=== PATIENT | male | born 1945 | race Caucasian/White ===

== ENCOUNTER 2021-12-28 10:51 | Observation (INO) ==
[2021-12-28] MEDS ORDERED: Ondansetron 4 MG/2 ML VIAL IVP ONE (11:11)
[2021-12-28 11:49] LABS: Basophils # 0.1 K/mcL (0.0-0.2); Eosinophils # 0.4 K/mcL (0.0-0.6); Eosinophils % 4.3 %; Hematocrit 38.9 % (37.5-50.1); Hemoglobin 12.7 g/dL (12.9-16.9); Immature Granulocytes % 1.2 % (0-4); Lymphocytes # 1.4 K/mcL (0.6-4.6); Lymphocytes % 16.5 %; Mean Corpuscular HGB Conc 32.6 g/dL (31.6-35.5); Mean Corpuscular Hemoglobin 30.2 pg (28.0-33.3); Mean Corpuscular Volume 92.4 fL (83.0-100.0); Mean Platelet Volume 10.5 fL (9.4-12.4); Monocytes # 0.5 K/mcL (0.0-1.3); Monocytes % 6.4 %; Neutrophils # 5.8 K/mcL (1.6-8.9); Platelet Count 305 K/mcL (140-400); Red Blood Count 4.21 M/mcL (4.19-5.50); Segmented Neutrophils % 70.6 %; White Blood Count 8.2 K/mcL (4.3-11.1)
[2021-12-28 12:12] LABS: Troponin I 0.04 ng/mL (< 0.04)
[2021-12-28 12:34] LABS: Albumin 4.3 g/dL (3.5-5.7); Albumin/Globulin Ratio 1.5 (1.1-2.2); Bilirubin,Direct 0.1 mg/dL (0.0-0.2); Bilirubin,Indirect 0.7 mg/dL (0.0-1.0); Bilirubin,Total 0.8 mg/dL (0.3-1.0); Calcium 9.6 mg/dL (8.6-10.3); Globulin 2.8 g/dL (2.4-3.5); Potassium 4.3 mEq/L (3.5-5.1); Total Protein 7.1 g/dL (6.4-8.9)
[2021-12-28] MEDS ORDERED: 0.9 % Sodium Chloride 1,000 ML IVC ONE (12:46)
[2021-12-28] MEDS ORDERED: Acetaminophen 325 MG TABLET PO PRN (12:58)
[2021-12-28] MEDS ORDERED: Ondansetron ODT 4 MG TAB.RAPDIS SL PRN (12:58)
[2021-12-28] MEDS ORDERED: Melatonin 3 MG TABLET PO PRN (12:58)
[2021-12-28] MEDS ORDERED: Naloxone 0.4 MG/ML INJ IVP PRN (12:58)
[2021-12-28 13:35] LABS: Bilirubin,Urine Negative (Negative); Blood,Urine Negative (Negative); Clarity,Urine Clear (Clear); Color,Urine Colorless (Yellow); Glucose,Urine (UA) 30 mg/dL (Normal); Hyaline Casts,Urine Few per lpf (None Seen); Ketones,Urine Negative (Negative); Leukocyte Esterase,Urine Negative (Negative); Mucus,Urine Few per lpf (None-Few); Nitrite,Urine Negative (Negative); Protein,Urine 100 mg/dL (Neg-Trace); RBC,Urine 0-3 per hpf (0-3); Specific Gravity,Urine 1.014 (1.010-1.025); Urobilinogen,Urine Normal (Normal); WBC,Urine 0-3 per hpf (0-3)
[2021-12-28 14:52] LABS: Influenza A PCR Negative (Negative); Influenza B PCR Negative (Negative); Resp. Syncytial Virus PCR Negative (Negative)
[2021-12-28 15:31] LABS: SARS-CoV-2 by PCR (In House) Negative (Negative)
[2021-12-28 16:56] LABS: Protein/Creatinine Ratio,Urine 4.15 mg/mg (0.00-0.20); Sodium, Urine 125.8 mEq/L
[2021-12-28] MEDS ORDERED: amLODIPine 5 MG TABLET PO ONE (18:10)
[2021-12-28] MEDS: *HR* Heparin 5,000 UNIT/ML VIAL SQ SCH (20:34)
[2021-12-28] MEDS ORDERED: Prochlorperazine 10 MG/2 ML VIAL IVP PRN (22:53)
[2021-12-29 02:22] LABS: Hematocrit 36.5 % (37.5-50.1); Hemoglobin 11.9 g/dL (12.9-16.9); Mean Corpuscular HGB Conc 32.6 g/dL (31.6-35.5); Mean Corpuscular Hemoglobin 30.3 pg (28.0-33.3); Mean Corpuscular Volume 92.9 fL (83.0-100.0); Mean Platelet Volume 10.6 fL (9.4-12.4); Platelet Count 285 K/mcL (140-400); Red Blood Count 3.93 M/mcL (4.19-5.50); White Blood Count 11.3 K/mcL (4.3-11.1)
[2021-12-29 02:45] LABS: Magnesium 1.7 mg/dL (1.6-2.6); Potassium 4.4 mEq/L (3.5-5.1)
[2021-12-29] MEDS: *HR* Heparin 5,000 UNIT/ML VIAL SQ SCH ×3 (05:21→21:15)
[2021-12-29] MEDS: Finasteride 5 MG TABLET PO SCH (07:56)
[2021-12-29] MEDS ORDERED: amLODIPine 5 MG TABLET PO SCH (09:00)
[2021-12-29] MEDS: lisinopriL 10 MG TABLET PO SCH (15:54)
[2021-12-29] MEDS: Insulin LISPRO 300 UNITS/3 ML VIAL SUBQ SCH ×2 (16:26→21:12)
[2021-12-30] MEDS: *HR* Heparin 5,000 UNIT/ML VIAL SQ SCH ×3 (05:10→21:26)
[2021-12-30] MEDS: Finasteride 5 MG TABLET PO SCH (08:20)
[2021-12-30] MEDS: amLODIPine 5 MG TABLET PO SCH (08:21)
[2021-12-30] MEDS: Insulin LISPRO 300 UNITS/3 ML VIAL SUBQ SCH ×5 (08:21→21:25)
[2021-12-30] MEDS: lisinopriL 10 MG TABLET PO SCH (08:21)
[2021-12-30 09:58] LABS: Calcium 9.2 mg/dL (8.6-10.3); Potassium 4.3 mEq/L (3.5-5.1)
[2021-12-30] MEDS: Aspirin Enteric Coated 81 MG Tablet PO SCH (12:08)
[2021-12-31 03:22] VITALS: TEMP 97.9
[2021-12-31] MEDS: *HR* Heparin 5,000 UNIT/ML VIAL SQ SCH (06:31)
[2021-12-31 09:19] VITALS: BP 173/81; PULSE 83; O2SAT 96
[2021-12-31] MEDS: lisinopriL 10 MG TABLET PO SCH (09:46)
[2021-12-31] MEDS: Finasteride 5 MG TABLET PO SCH (09:47)
[2021-12-31] MEDS: Aspirin Enteric Coated 81 MG Tablet PO SCH (09:47)
[2021-12-31] MEDS: Insulin LISPRO 300 UNITS/3 ML VIAL SUBQ SCH (09:47)
[2021-12-31] MEDS: amLODIPine 5 MG TABLET PO SCH (09:47)
== END 2021-12-31 10:32 | disposition home or self-care (01) ==
LOC: 2ANU 10:51 → EMEROOARM 10:51 → 2ANU 14:56
PROVIDERS: ADMIT Internal Medicine; ATTEND Internal Medicine